=== PATIENT | female | born 1995 | race Caucasian/White ===

== ENCOUNTER 2018-08-16 20:10 | Emergency (ER) | payer OTHER ==
[~2018-08-16] VITALS: Ht 162.6 cm; Wt 69.4 kg
[2018-08-16 20:25] VITALS: BP 106/64
--- NOTE | 2018-08-16 20:30 | NUR ---
PT AMBULATED TO [facility]. PROVIDED URINE.
--- NOTE | 2018-08-16 21:05 | NUR ---
PATIENT AMBULATED TO ER CHAIR C.
--- NOTE | 2018-08-16 21:10 | NUR ---
PT IS A 22 Y/O FEMALE WHO PRESENTS TO THE ED C/O POSITIVE TEST RESULT. PER PT WAS SEEN AT PCP TODAY AND DIAGNOSED WITH CHLAMYDIA AND GONORRHEA AND WAS GIVEN A REFERRAL TO COME TO ED. PER PT IS REQUESTING THAT WE MEDICATE PATIENT WITH ROCEPHIN 250MG. PT REPORTS 5/10 BURNING ON URINATION PAIN THAT DOES NOT RADIATE. PT DENIES CP, SOB, N/V/D. PT AWAKE AND ALERT, RR EVEN/UNLABORED. PT REPOSITIONED FOR COMFORT, PT SITTING IN CHAIR. ER PROVIDER NOTIFIED. WILL CONTINUE TO MONITOR.
[2018-08-16] MEDS ORDERED: AZITHROMYCIN 250 MG TAB PO ONE (21:35)
[2018-08-16] MEDS ORDERED: cefTRIAXone 250 MG in LIDOCAINE MPF 1% - 5 mL VIAL 0.9 ML IM ONE (21:35)
[2018-08-16 22:09] VITALS: BP 125/82
--- NOTE | 2018-08-16 22:09 | NUR ---
Patient discharged with v/s stable. Written and verbal after care instructions given and explained. Patient verbalized understanding. Ambulatory with steady gait. All questions addressed prior to discharge. Advised to follow up with PMD.
== END 2018-08-16 22:09 | disposition home or self-care (01) ==
LOC: MED 20:10
DX: A54.9 Gonococcal infection, unspecified (principal); A74.9 Chlamydial infection, unspecified
CPT/HCPCS: 81025; 96372; 99283; J0696; J2001